=== PATIENT | male | born 1995 | race American Indian/Alaskan Native ===

== ENCOUNTER 2017-07-28 13:00 | Emergency (ER) | payer OTHER ==
[2017-07-28] MEDS ORDERED: predniSONE 20 MG TABLET (UD) PO ONE (13:34)
[2017-07-28] MEDS ORDERED: valACYclovir HCL 1000 MG TABLET PO ONE (13:34)
[2017-07-28 13:37] VITALS: TEMP 98.7; BMI 31.1
--- NOTE | 2017-07-28 13:42 | PDOC ---
History of Present Illness - General Chief Complaint: Facial Droop Stated Complaint: FACIAL DROOPING/ SLURRED SPEECH Time Seen by Provider: 07/28/17 13:05 - History of Present Illness Initial Comments: 07/28/17 13:38 Patient is a 21 year old male with no significant past medical history who presents with right facial droop and slurred speech. The patient reports left eye twitching beginning 2 days ago that he initially ignored, however 1 day ago began experiencing difficulty keeping his right eye open and feeling a sensation of some numbness and difficulty chewing on the right side of his face prompting his visit to the ED today. He denies any other weakness, numbness, or tingling in the rest of his extremities and denies fevers, chills, SOB, chest pain, abdominal pain, or changes with urination or bowel movements. He denies recent travel or tick bites. Past History - Past Medical History Allergies/Adverse Reactions: Allergies Allergy/AdvReac Type Severity Reaction Status Date / Time No Known Allergies Allergy Verified 07/28/17 13:09 Home Medications: Ambulatory Orders Prednisone [Deltasone -] 60 mg PO DAILY #30 tablet 07/28/17 Valacyclovir HCl [Valtrex -] 1,000 mg PO TID #21 tablet 07/28/17 Other medical history: DENIES - Psycho/Social/Smoking Cessation Hx Anxiety: No Suicidal Ideation: No Smoking History: Never smoked Have you smoked in the past 12 months: No Information on smoking cessation initiated: No Hx Alcohol Use: No Drug/Substance Use Hx: No Substance Use Type: None Review of Systems - Review of Systems Constitutional: No: Chills, Fever HEENTM: Yes: Other (Facial Droop). No: Blurred Vision, Tearing, Recent change in vision, Double Vision Respiratory: No: Cough, Shortness of Breath Cardiac (ROS): No: Chest Pain, Lightheadedness, Palpitations, Syncope ABD/GI: No: Constipated, Diarrhea, Nausea, Vomiting : No: Dysuria Musculoskeletal: No: Neck Pain Integumentary: No: Rash Neurological: No: Headache, Numbness, Paresthesia, Tingling, Weakness *Physical Exam - Vital Signs Last Vital Signs Temp Pulse Resp BP Pulse Ox 98.7 F 84 20 149/79 99 07/28/17 13:09 07/28/17 13:09 07/28/17 13:09 07/28/17 13:09 07/28/17 13:09 - Physical Exam Comments: 07/28/17 13:45 General Appearance: Nourished. No Apparent Distress HEENT: EOMI, NATALI. No Pharyngeal Erythema, Tonsillar Exudate, Tonsillar Erythema Respiratory/Chest: Lungs Clear, Normal Breath Sounds. No Crackles, Rales, Rhonchi, Wheezing Cardiovascular: Regular Rhythm, Regular Rate. No Murmur, Gallop/S3, Gallop/S4 Gastrointestinal/Abdominal: Normal Bowel Sounds, Soft. 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 Other Cranial nerves intact bilaterally. No EOM Palsy, Normal Finger to Nose and Heel to Rai Neurologic: negative: EOM Palsy, Finger to Nose Medical Decision Making - Medical Decision Making 07/28/17 13:47 Patient is a 21 year old male with no significant past medical history who presents with right facial droop and slurred speech. 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 The patient has not had exposure to ticks making lyme's disease unlikely. We discussed with the patient the diagnosis and the importance that he follow up with his PCP. We discussed that he obtain artificial tears to help keep his eye lubricated and tape his eye shut at night. We will prescribe 1 week of prednisone and valcyclovir to treat his condition. We feel comfortable discharging the patient home at this time. The patient and his family voiced understanding and are agreeable with the plan. *DC/Admit/Observation/Transfer Diagnosis at time of Disposition: Zuñiga's palsy - Discharge Dispostion Disposition: HOME Condition at time of disposition: Good Admit: No - Prescriptions Prescriptions: Prednisone [Deltasone -] 60 mg PO DAILY #30 tablet Valacyclovir HCl [Valtrex -] 1,000 mg PO TID #21 tablet - Patient Instructions Printed Discharge Instructions: DI for Zuñiga's Palsy Additional Instructions: Please return to the ER if you experience concerning or worsening symptoms. You have developed a Zuñiga's Palsy. It is important that you follow up with your Primary care provider to discuss your ER visit. You have been prescribed prednisone which you should take 60mg daily for 7 days. We have also prescribed valacyclovir that you should take 1000mg three times a day for 7 days. Please use artificial tears to help keep your eyes lubricated while you have Zuñiga's Palsy.
[2017-07-28] MEDS ORDERED: predniSONE 20 MG TABLET (UD) ONE (13:53)
--- NOTE | 2017-07-28 13:58 | PDOC ---
Attending Attestation - Resident Resident Name: Phu Lopez - ED Attending Attestation I have performed the following: I have examined & evaluated the patient, The case was reviewed & discussed with the resident, I agree w/resident's findings & plan, Exceptions are as noted - HPI HPI: 07/28/17 13:53 21-year-old male with no past medical history presents to the emergency department for right facial droop for 2 days. Patient has developed upper respiratory infection symptoms. 2 days ago developed right facial droop and some slurring. Otherwise denies other symptoms of the upper and lower extremity numbness or weakness. - Physicial Exam PE: 07/28/17 13:58 GENERAL: Awake, alert, and fully oriented, in no acute distress. HEAD: No signs of trauma EYES: PERRLA, EOMI, sclera anicteric, conjunctiva clear ENT: Auricles normal inspection, hearing grossly normal, nares patent, oropharynx clear without exudates. NECK: Normal ROM, supple, no lymphadenopathy, JVD, or masses LUNGS: Breath sounds equal, clear to auscultation bilaterally. No wheezes, and no crackles HEART: Regular rate and rhythm, normal S1 and S2, no murmurs, rubs or gallops ABDOMEN: Soft, nontender, normoactive bowel sounds. No guarding, no rebound. No masses EXTREMITIES: Normal range of motion, no edema. No clubbing or cyanosis. No cords, erythema, or tenderness NEUROLOGICAL: Normal speech, normal gait. 5/5 strength upper and lower extremities. Sensation intact throughout. R facial droop. Unable to wrinkle R forehead. SKIN: Warm, Dry, normal turgor, no rashes or lesions noted. - Medical Decision Making 07/28/17 13:59 Vital Signs Temp Pulse Resp BP Pulse Ox 98.7 F 84 20 149/79 99 07/28/17 13:09 07/28/17 13:09 07/28/17 13:09 07/28/17 13:07/28/17 13:09 This is consistent with Zuñiga's palsy. Prednisone and antivirals and follow-up with primary care physician. I had advised the patient that this is typically self-limiting but he was sepsis, this may be chronic. I checked the patient to keep teardrops to keep his eyes hydrated and to use a gauze with tape to close his eyelids when he sleeping. Patient verbalizes understand agrees with plan.
[2017-07-28 14:24] VITALS: BP 142/86; PULSE 78
== END 2017-07-28 14:24 | disposition home or self-care (01) ==
LOC: JER 13:00
DX: G51.0 Bell's palsy (principal)
CPT/HCPCS: 99283-25

== ENCOUNTER 2023-12-29 03:21 | Emergency (ER) | payer OTHER ==
[2023-12-29 03:30] VITALS: RESP 18; BMI 34.8
[2023-12-29] MEDS: SODIUM CHLORIDE 1,000 ML IV STA (04:53)
[2023-12-29 04:54] LABS: BASO % 0.5 % (0-2.0); EOS % 0.2 % (0-4.5); HEMATOCRIT 45.5 % (35.4-49); HEMOGLOBIN 15.2 GM/dL (11.7-16.9); LYMPH % 12.6 % (8-40); MCH 25.8 pg (25.7-33.7); MCHC 33.3 g/dl (32.0-35.9); MEAN CELL VOLUME 77.5 fl (80-96); MEAN PLT VOLUME 8.1 fl (7.5-11.1); NEUT % 78.7 % (42.8-82.8); PLATELET COUNT 330 10^3/uL (134-434); RBC 5.87 M/mm3 (4.00-5.60); RDW 13.8 % (11.9-15.9); WHITE BLOOD COUNT 19.6 K/mm3 (4.0-10.0)
[2023-12-29 05:13] LABS: INR 1.22 (0.83-1.09); PROTHROMBIN TIME (PATIENT) 14.1 SEC (9.7-13.0)
[2023-12-29 05:15] LABS: ACTIVATED PTT 36.6 SECONDS (25.2-36.5)
[2023-12-29 06:09] LABS: POTASSIUM 3.8 mmol/L (3.5-5.1)
[2023-12-29 06:12] LABS: ALBUMIN 4.5 g/dl (3.4-5.0); BLOOD UREA NITROGEN 9.4 mg/dL (7-18); CALCIUM 10.1 mg/dL (8.5-10.1)
[2023-12-29] MEDS ORDERED: ACETAMINOPHEN INJECTION 100 ML IVPB ONE (06:14)
[2023-12-29 06:16] LABS: BILIRUBIN,TOTAL 0.9 mg/dL (0.2-1); TOT PROT 9.4 g/dl (6.4-8.2)
[2023-12-29] MEDS: ACETAMINOPHEN 1000 MG/100 ML BAG IVPB ONE (06:32)
[2023-12-29] MEDS ORDERED: AMPICILLIN NA/SULBACTAM NA 1.5 GM VIAL ONE (07:47)
[2023-12-29] MEDS ORDERED: KETOROLAC TROMETHAMINE 15 MG/ML VIAL ONE (07:47)
[2023-12-29] MEDS ORDERED: DEXAMETHASONE SOD PHOSPHATE 10 MG/1 ML VIAL ONE (07:47)
[2023-12-29] MEDS: LACTATED RINGERS SOLUTION 1,000 ML/1,000 ML INFUS.BAG IV SCH (08:07)
[2023-12-29] MEDS: KETOROLAC TROMETHAMINE 15 MG/ML VIAL IVPUSH ONE (08:07)
[2023-12-29] MEDS: DEXAMETHASONE SOD PHOSPHATE 10 MG/1 ML VIAL IVPUSH ONE (08:07)
[2023-12-29] MEDS ORDERED: AMPICILLIN NA/SULBACTAM NA 3 GM VIAL ONE (08:10)
[2023-12-29] MEDS: AMPICILLIN NA/SULBACTAM NA 3 GM in DEXTROSE 5%-WATER 100 ML IVPB ONE (09:30)
[2023-12-29 10:15] VITALS: BP 154/95; PULSE 103; TEMP 98.3
== END 2023-12-29 10:17 | disposition short-term general hospital (02) ==
LOC: JER 03:21
PROC: 3E03329 Introduction of Other Anti-infective into Peripheral Vein, Percutaneous Approach (ICD-10-PCS; principal; 2023-12-29)
PROC: 3E033NZ Introduction of Analgesics, Hypnotics, Sedatives into Peripheral Vein, Percutaneous Approach (ICD-10-PCS; 2023-12-29)
PROC: 3E033GC Introduction of Other Therapeutic Substance into Peripheral Vein, Percutaneous Approach (ICD-10-PCS; 2023-12-29)
PROC: 3E0333Z Introduction of Anti-inflammatory into Peripheral Vein, Percutaneous Approach (ICD-10-PCS; 2023-12-29)
PROC: 3E0337Z Introduction of Electrolytic and Water Balance Substance into Peripheral Vein, Percutaneous Approach (ICD-10-PCS; 2023-12-29)
DX: R25.2 Cramp and spasm (principal); K11.20 Sialoadenitis, unspecified; R22.0 Localized swelling, mass and lump, head; R00.0 Tachycardia, unspecified; Z20.822 Contact with and (suspected) exposure to COVID-19
CPT/HCPCS: 0241U-QW; 36415; 70491-TC; 80053; 83605; 85025; 85610; 85730; 86850; 86900; 86901; 87040; 87076; 87651; 93005; 93010; 99285-25; J0131; J1100; Q9967